=== PATIENT | female | born 1985 | race Caucasian/White ===

== ENCOUNTER 2020-02-14 11:57 | Outpatient (REF) | payer OTHER, SELFPAY | END 2020-02-14 11:58 | disposition home or self-care (01) | LOC: HO.LAB 11:57 | PROVIDERS: Visit Provider Internal Medicine | DX: Z20.828 Contact with and (suspected) exposure to other viral communicable diseases (principal) | CPT/HCPCS: C9803; U0003 ==

== ENCOUNTER → 2020-04-04 11:46 | Outpatient (BNVA) | payer OTHER, SELFPAY | PROVIDERS: PCP Internal Medicine; Visit Provider Advanced Practice Midwife ==

== ENCOUNTER → 2020-04-10 10:06 | Outpatient (BNVA) | payer OTHER, SELFPAY | PROVIDERS: Visit Provider Advanced Practice Midwife | DX: Z76.89 Persons encountering health services in other specified circumstances (principal) | CPT/HCPCS: 58301 ==

== ENCOUNTER → 2020-04-17 10:42 | Outpatient (BNVA) | payer OTHER, SELFPAY | PROVIDERS: Visit Provider Advanced Practice Midwife | DX: N64.52 Nipple discharge (principal) | CPT/HCPCS: 99212 ==

== ENCOUNTER 2020-04-24 07:48 | Outpatient (REF) | payer OTHER, SELFPAY ==
--- NOTE | ~2020-04-24 | MM_ITS ---
EXAMINATION: MM DIAGNOSTIC DIGITAL BREAST TOMOSYNTHESIS, BILATERAL US DIAGNOSTIC ULTRASOUND BREAST, RIGHT CLINICAL INFORMATION: 34-year-old with 2 episodes trace right dark nipple discharge with squeezing. No known family history breast cancer. No prior mammography. The lifetime risk of breast cancer based on the Tyrer-Cuzick Model is 9%. COMPARISON: Targeted left breast ultrasound 07/04/2010 TECHNIQUE: Digital breast tomosynthesis is performed in both the craniocaudal and mediolateral oblique views along with computer-aided detection (CAD). Synthesized 2D images are generated from the tomosynthesis. Ultrasound right breast is targeted to the retroareolar and periareolar region as well as the 7:00 through 11:00 position. Grayscale imaging and color Doppler are performed without and with harmonics. FINDINGS: There are scattered areas of fibroglandular density (ACR BI-RADS breast composition Category b). The left breast is unremarkable. There is no mass or architectural abnormality. Neither breast shows abnormal calcifications. The bilateral axilla and skin contours are unremarkable. No duct ectasia. Right breast has a circumscribed nodule 8:00 to 9:00 position mid depth measuring 0.9 x 0.8 x 0.7 cm. Ultrasound right breast demonstrates complicated cyst 9:00 position 4 cm from nipple measuring 0.9 x 0.6 cm. There are some avascular thin branching internal septations. No nodular solid component or associated color flow. There is increased through-transmission of sound. Punctate satellite cyst also suggested near this area. There is no solid mass or duct ectasia. No architectural abnormality. Results are discussed with the patient at time of visit. MM/MM tomosynthesis diagnostic BI IMPRESSION: 1. Right: Complicated cyst mid 9:00 position 0.9 cm with some fine branching avascular internal septations. No duct ectasia or suspicious finding. 2. Left: No mammographic evidence of malignancy. ASSESSMENT: BI-RADS 3: Probably Benign RECOMMENDATION: 1. Diagnostic right mammography and targeted right breast ultrasound in 6 months. 2. If the unexplained unilateral breast discharge is recurrent/persistent, further evaluation may be considered with breast MR without and with gadolinium contrast. This patient's information was entered into a reminder system with a target due date for their next mammogram.
== END 2020-04-24 07:49 | disposition home or self-care (01) ==
LOC: HO.MAMMO 07:48
PROVIDERS: Visit Provider Advanced Practice Midwife
DX: N64.52 Nipple discharge (principal)
CPT/HCPCS: 76642; 77062; 77066

== ENCOUNTER → 2020-05-08 12:16 | Outpatient (BNVA) | payer OTHER, SELFPAY | PROVIDERS: Visit Provider Advanced Practice Midwife ==

== ENCOUNTER → 2020-05-20 10:09 | Outpatient (BNVA) | payer OTHER, SELFPAY | PROVIDERS: Visit Provider Advanced Practice Midwife ==

== ENCOUNTER 2020-05-24 09:26 | Outpatient (REF) | payer OTHER, SELFPAY ==
[2020-05-24 12:15] LABS: Anion Gap 11 (12-20); Blood Urea Nitrogen 7 mg/dL (9-16); Calcium 8.9 mg/dL (8.4-10.2); Carbon Dioxide 30 mmol/L (22-29); Chloride 101 mmol/L (96-108); Estimated Glomerular Filt Rate > 60; Glucose Fasting 90 mg/dL (60-99); Potassium 4.4 mmol/L (3.3-5.1); Sodium 138 mmol/L (135-145)
== END 2020-05-24 09:27 | disposition home or self-care (01) ==
LOC: HO.LAB 09:26
PROVIDERS: Visit Provider Surgery
DX: N64.52 Nipple discharge (principal); F17.200 Nicotine dependence, unspecified, uncomplicated; N60.01 Solitary cyst of right breast
CPT/HCPCS: 36415; 80048; 99202

== ENCOUNTER 2020-07-25 09:36 | Outpatient (REF) | payer OTHER, SELFPAY ==
--- NOTE | ~2020-07-25 | MR_ITS ---
EXAMINATION: MR BREAST WITHOUT AND WITH CONTRAST, BILATERAL CLINICAL INFORMATION: Right nipple discharge and right breast pain. COMPARISON: Bilateral mammogram and targeted right breast ultrasound dated 04/24/2020 TECHNIQUE: Imaging was performed with a dedicated breast coil. Prior to the administration of contrast, bilateral axial T1 and bilateral axial T2 weighted sequences were obtained. After the uneventful administration of?8.5 mL of Gadavist, dynamic contrast-enhanced VIBRANT series through the breasts in the axial plane were performed. Subtracted images were performed and reviewed. A delayed sagittal sequence through both breasts was acquired. Additionally, CAD post-processing, including maximum intensity projections, 3-D reconstructions and kinetic analysis, were performed an independent workstation and reviewed by the interpreting radiologist is a portion of this exam. FINDINGS: The patient's fibroglandular tissue, which is greater on the right than the left and is concentrated in the superior portion of both breasts, demonstrates moderate background enhancement. LEFT BREAST: No suspicious masslike or non-masslike enhancement. No abnormal skin thickening or nipple retraction. No abnormal architectural distortion. Review of the T2 weighted images demonstrates no fibrocystic changes or dilated ducts. Review of kinetic images reveals no additional findings. RIGHT BREAST: No suspicious masslike or non-masslike enhancement. Regional parenchymal enhancement is noted superiorly where the fibroglandular tissue is distributed within the breast. No abnormal skin thickening or nipple retraction. No abnormal architectural distortion. An oval, septated, nonenhancing cyst is seen in the 8 to 9:00 position, middle depth measuring 1.0 cm. Review of kinetic images reveals no additional findings. There is no suspicious internal mammary chain or axillary adenopathy. Limited views of the chest and abdomen are unremarkable. MR/MR breast BI wo/w con IMPRESSION: Prominent parenchymal enhancement, right greater than left in the superior breast bilaterally, this correlates to the location of fibroglandular tissue in the breast. The appearance is most consistent with background enhancement. There is no suspicious enhancing mass in either breast. ASSESSMENT: LEFT BREAST: BI-RADS Category 2, benign. RIGHT BREAST: BI-RADS Category 2, benign. RECOMMENDATIONS: Background enhancement. No findings suspicious for malignancy. Further clinical evaluation of unilateral nipple discharge as per Dr. Reynolds.
== END 2020-07-25 09:37 | disposition home or self-care (01) ==
LOC: HO.MRI 09:36
PROVIDERS: Visit Provider Surgery
DX: N64.52 Nipple discharge (principal)
CPT/HCPCS: 77049; A9585

== ENCOUNTER 2020-10-22 12:51 | Outpatient (REF) | payer OTHER, SELFPAY ==
--- NOTE | ~2020-10-22 | MM_ITS ---
EXAMINATION: MM DIAGNOSTIC DIGITAL BREAST TOMOSYNTHESIS, RIGHT US DIAGNOSTIC ULTRASOUND BREAST, RIGHT CLINICAL INFORMATION: Short interval six-month follow-up probable benign complicated cyst mid 9:00 right breast. The lifetime risk of breast cancer based on the Tyrer-Cuzick Model is 9%. COMPARISON: Mammography: 04/24/2020, targeted right breast ultrasound 04/24/2020; MRI breasts without and with contrast 07/25/2020. TECHNIQUE: Digital breast tomosynthesis is performed in both the craniocaudal and mediolateral oblique views along with computer-aided detection (CAD). Synthesized 2D images are generated from the tomosynthesis. Ultrasound right breast is targeted to the outer quadrant. Grayscale imaging and color Doppler are performed without and with harmonics. FINDINGS: There are scattered areas of fibroglandular density (ACR BI-RADS breast composition Category b). Parenchymal pattern is similar to prior exam. There is no developing density or interval mass or architectural abnormality. The complicated cyst mid 9:00 position is slightly decreased, measuring approximately 8 x 5 mm compared with prior measurement 9 x 7 mm. No abnormal calcifications. The axilla and skin contours are unremarkable. Ultrasound demonstrates the complicated cyst 9:00 position 4 cm from nipple with avascular internal septation and overall size 8 x 5 mm. The cyst is avascular on recent breast MRI. Results are discussed with the patient at time of visit. Patient denies persistent right nipple discharge. She has follow-up appointment with surgeon. MM/MM tomosynthesis diagnostic RT IMPRESSION: 1. No mammographic evidence of malignancy. 2. Benign complicated cyst mid 9:00 position slightly decreased. Lesion is benign-appearing and avascular on recent breast MR. ASSESSMENT: BI-RADS 2: Benign RECOMMENDATION: 1. Follow up with surgeon as planned. 2. Routine annual mammography screening, by age 40, or earlier as clinical risk factors warrant. This patient's information was entered into a reminder system with a target due date for their next mammogram.
== END 2020-10-22 12:52 | disposition home or self-care (01) ==
LOC: HO.MAMMO 12:51
PROVIDERS: Visit Provider Advanced Practice Midwife
DX: R92.2 Inconclusive mammogram (principal)
CPT/HCPCS: 76642; 77061; 77065

== ENCOUNTER 2021-07-09 15:05 | Outpatient (REF) | payer OTHER, SELFPAY ==
[2021-07-10 05:15] LABS: CT PCR NOT DETECTED (Not Detect.); NG PCR NOT DETECTED (Not Detect.)
[2021-07-10 15:49] LABS: BV Int Neg Control Negative (Negative); BV Int Pos Control Positive (Positive)
[2021-07-15 02:06] LABS: HPV 16 RNA NOT DETECTED (NOT DETECTED); HPV mRNA E6/E7 rflx Detected (Not Detected)
== END 2021-07-09 15:06 | disposition home or self-care (01) ==
LOC: HO.LAB 15:05
PROVIDERS: Visit Provider Advanced Practice Midwife
DX: Z01.419 Encounter for gynecological examination (general) (routine) without abnormal findings (principal); Z11.51 Encounter for screening for human papillomavirus (HPV); Z20.2 Contact with and (suspected) exposure to infections with a predominantly sexual mode of transmission
CPT/HCPCS: 87480; 87491; 87510; 87591; 87624; 87625; 87660; 88142